=== PATIENT | male | born 1980 | race American Indian/Alaskan Native ===

== ENCOUNTER 2021-04-03 12:15 | Emergency (ER) | payer SELFPAY ==
[2021-04-03 13:29] VITALS: BP 143/74
[2021-04-03] MEDS ORDERED: predniSONE 20 MG TAB PO ONE (14:01)
[2021-04-03] MEDS ORDERED: CYCLOBENZAPRINE 10 MG TAB PO ONE (14:01)
[2021-04-03] MEDS ORDERED: ACETAMINOPHEN W/CODEINE 300-30 MG TAB PO ONE (14:01)
[2021-04-03] MEDS ORDERED: KETOROLAC 10 MG TAB PO ONE (14:01)
--- NOTE | 2021-04-03 14:05 | Emergency Department Report ---
ED Back Pain/Injury HPI - General Chief Complaint: Pain General Stated Complaint: BACK PAIN/MUSCLE SPASM Time Seen by Provider: 04/03/21 13:47 Source: patient Limitations: No Limitations - History of Present Illness Initial Comments: 40-year-old black male with no past medical history presents to the emergency department for evaluation of 2-week history of right upper back pain. He states that pain initially started 2 weeks ago after lifting heavy boxes at work. He states that pain is intermittent, 10 of 10 at its worse, and a crampy feeling to his right upper and mid back radiating down to his right shoulder. He states that he has been taking ibuprofen, Excedrin, [id number] back medications. And [id number] creams without improvement. He denies any urinary symptoms, fever, abdominal pain, nausea vomiting. MD Complaint: back pain -: Gradual, week(s) (2) Similar Symptoms Previously: No Place: work Radiation: none Severity: severe Severity scale (0 -10): 10 Quality: stabbing, aching, other (Crampy) Consistency: intermittent Worsens With: other (Certain movements) Associated Symptoms: denies: difficulty walking, cough, difficulty urinating, diaphoresis, incontinence, fever/chills, headaches, abdominal pain, loss of appetite, malaise, nausea/vomiting, rash, shortness of breath, syncope Treatments Prior to Arrival: NSAIDS, acetaminophen - Related Data Previous Rx's Medication Instructions Recorded Last Taken Type Fluticasone Propionate [Flonase] 2 sprays NS DAILY #1 spray.susp 06/06/13 Unknown Rx Loratadine (Nf) [Claritin] 10 mg PO DAILY #30 tablet 06/06/13 Unknown Rx Sulfamethoxazole/Trimethoprim 1 each PO BID #20 tablet 06/06/13 Unknown Rx [Bactrim Ds] predniSONE [Deltasone] 50 mg PO QDAY #5 tab 06/06/13 Unknown Rx Amoxicillin/K Clav Tab [Augmentin 1 tab PO BID #20 tablet 08/30/13 Unknown Rx 875MG] HYDROcodone/ACETAMINOPHEN [[place] 1 each PO Q6HR #20 tablet 08/30/13 Unknown Rx 5/325 Tablet] Ibuprofen [Motrin 600 MG tab] 600 mg PO Q8H PRN #60 tablet 08/30/13 Unknown Rx Acetamin/Codeine 120-12Mg/5 ml 5 ml PO TID PRN #30 ml 01/13/15 Unknown Rx [Tylenol/Codeine] Amoxicillin [Trimox CAP] 500 mg PO BID 10 Days capsule 01/13/15 Unknown Rx Ibuprofen [Motrin] 600 mg PO Q8H PRN #60 tablet 01/13/15 Unknown Rx Cyclobenzaprine [Flexeril] 10 mg PO TID PRN #21 tab 04/03/21 Unknown Rx Naproxen [Naprosyn] 500 mg PO BID #14 tab 04/03/21 Unknown Rx Allergies Allergy/AdvReac Type Severity Reaction Status Date / Time No Known Allergies Allergy Verified 08/29/13 21:46 ED Review of Systems ROS: Stated complaint: BACK PAIN/MUSCLE SPASM Other details as noted in HPI Comment: All other systems reviewed and negative Constitutional: denies: chills, diaphoresis, fever, weakness Eyes: denies: eye pain ENT: denies: ear pain Respiratory: denies: cough, shortness of breath Cardiovascular: denies: chest pain, palpitations, orthopnea, edema, syncope, paroxysmal nocturnal dyspnea Endocrine: denies: no symptoms reported Gastrointestinal: denies: abdominal pain, nausea, vomiting, diarrhea, constipation Genitourinary: denies: urgency, dysuria, frequency, hematuria, discharge, testicular pain Musculoskeletal: back pain. denies: joint swelling, arthralgia, myalgia Skin: denies: rash, lesions Neurological: denies: headache, weakness Psychiatric: denies: anxiety, depression Hematological/Lymphatic: denies: easy bleeding ED Past Medical Hx - Social History Smoking Status: Former Smoker Substance Use Type: Marijuana - Medications Home Medications: Home Medications Medication Instructions Recorded Confirmed Last Taken Type Fluticasone Propionate [Flonase] 2 sprays NS DAILY #1 spray.susp 06/06/13 Unknown Rx Loratadine (Nf) [Claritin] 10 mg PO DAILY #30 tablet 06/06/13 Unknown Rx Sulfamethoxazole/Trimethoprim 1 each PO BID #20 tablet 06/06/13 Unknown Rx [Bactrim Ds] predniSONE [Deltasone] 50 mg PO QDAY #5 tab 06/06/13 Unknown Rx Amoxicillin/K Clav Tab [Augmentin 1 tab PO BID #20 tablet 08/30/13 Unknown Rx 875MG] HYDROcodone/ACETAMINOPHEN [[place] 1 each PO Q6HR #20 tablet 08/30/13 Unknown Rx 5/325 Tablet] Ibuprofen [Motrin 600 MG tab] 600 mg PO Q8H PRN #60 tablet 08/30/13 Unknown Rx Acetamin/Codeine 120-12Mg/5 ml 5 ml PO TID PRN #30 ml 01/13/15 Unknown Rx [Tylenol/Codeine] Amoxicillin [Trimox CAP] 500 mg PO BID 10 Days capsule 01/13/15 Unknown Rx Ibuprofen [Motrin] 600 mg PO Q8H PRN #60 tablet 01/13/15 Unknown Rx Cyclobenzaprine [Flexeril] 10 mg PO TID PRN #21 tab 04/03/21 Unknown Rx Naproxen [Naprosyn] 500 mg PO BID #14 tab 04/03/21 Unknown Rx ED Physical Exam - General Limitations: No Limitations General appearance: alert, in no apparent distress - Head Head exam: Present: atraumatic, normocephalic - Eye Eye exam: Present: normal appearance. Absent: conjunctival injection - Neck Neck exam: Present: normal inspection, full ROM. Absent: lymphadenopathy - Respiratory Respiratory exam: Present: normal lung sounds bilaterally. Absent: respiratory distress, chest wall tenderness, accessory muscle use - Cardiovascular Cardiovascular Exam: Present: regular rate, normal heart sounds - GI/Abdominal GI/Abdominal exam: Present: soft. Absent: distended, tenderness, guarding, normal bowel sounds - Extremities Exam Extremities exam: Present: normal inspection, full ROM - Back Exam Back exam: Present: normal inspection, full ROM, tenderness, muscle spasm. Absent: CVA tenderness (R), CVA tenderness (L), paraspinal tenderness, vertebral tenderness - Expanded Back Exam Expanded 1 - tender to touch. no erythema or edema noted. - Neurological Exam Neurological exam: Present: alert, oriented X3 - Psychiatric Psychiatric exam: Present: normal affect, normal mood - Skin Skin exam: Present: warm, dry, intact, normal color ED Course Vital Signs 04/03/21 13:27 Temperature 97.2 F L Pulse Rate 72 Respiratory 18 Rate Blood Pressure 143/74 [Right] O2 Sat by Pulse 98 Oximetry ED Medical Decision Making - Medical Decision Making 40-year-old black male with no past medical history presents to the emergency department for evaluation of 2-week history of right upper back pain. He states that pain initially started 2 weeks ago after lifting heavy boxes at work. He states that pain is intermittent, 10 of 10 at its worse, and a crampy feeling to his right upper and mid back radiating down to his right shoulder. He states that he has been taking ibuprofen, Excedrin, [id number] back medications. And [id number] creams without improvement. He denies any urinary symptoms, fever, abdominal pain, nausea vomiting. Exam consistent for musculoskeletal back pain. Patient will be treated with one-time dose of prednisone 60 mg p.o., Flexeril 10 mg p.o., and Toradol 10 mg p.o. while in the emergency department. Then he will be sent home with prescriptions for Flexeril 10 mg p.o. as needed and naproxen 500 mg that he can take as needed for pain. He was advised to take medications as prescribed, and follow-up with his primary care provider or orthopedics if no improvement or worsening symptoms. He verbalized understanding of and agreement with plan of care. Critical care attestation.: If time is entered above; I have spent that time in minutes in the direct care of this critically ill patient, excluding procedure time. ED Disposition Clinical Impression: Back pain Qualifiers: Back pain location: thoracic back pain Chronicity: acute Back pain laterality: right Qualified Code(s): M54.6 - Pain in thoracic spine Disposition: 01 HOME / SELF CARE / HOMELESS Is pt being admited?: No Does the pt Need Aspirin: No Condition: Stable Instructions: Acute Back Pain, Adult, Back Injury Prevention, [id number] Additional Instructions: Take medications as prescribed. Follow-up with primary care provider if no improvement or worsening symptoms. Prescriptions: Cyclobenzaprine [Flexeril] 10 mg PO TID PRN #21 tab PRN Reason: Muscle Spasm Naproxen [Naprosyn] 500 mg PO BID #14 tab Referrals: CORY DELEON MD [Staff Physician] - 3-5 Days Forms: Work/School Release Form(ED) Time of Disposition: 14:05
== END 2021-04-03 15:11 | disposition home or self-care (01) ==
LOC: ED 12:15
DX: M54.6 Pain in thoracic spine (principal); F12.90 Cannabis use, unspecified, uncomplicated; Z87.891 Personal history of nicotine dependence; Z79.899 Other long term (current) drug therapy
CPT/HCPCS: 99282